=== PATIENT | female | born 2000 | race Caucasian/White ===

== ENCOUNTER 2018-03-04 18:33 | Emergency (ER) | payer MEDICAID ==
[~2018-03-04] VITALS: Ht 162.6 cm; Wt 89.9 kg
[2018-03-04 18:40] VITALS: BP 124/86
[2018-03-04] MEDS ORDERED: METHOCARBAMOL 750 MG TABLET ONE (19:56)
[2018-03-04] MEDS ORDERED: KETOROLAC 30 MG/1 ML ONE (19:57)
[2018-03-04] MEDS ORDERED: METHOCARBAMOL 750 MG TABLET PO ONE (20:00)
[2018-03-04] MEDS ORDERED: KETOROLAC 30 MG/1 ML IM ONE (20:00)
== END 2018-03-04 21:06 | disposition home or self-care (01) ==
LOC: ED 21:00
DX: S16.1XXA Strain of muscle, fascia and tendon at neck level, initial encounter (principal); S29.012A Strain of muscle and tendon of back wall of thorax, initial encounter; V43.52XA Car driver injured in collision with other type car in traffic accident, initial encounter; Y93.89 Activity, other specified; Y92.89 Other specified places as the place of occurrence of the external cause; Y99.8 Other external cause status
CPT/HCPCS: 72072; 72125; 96372; 99284; J1885

== ENCOUNTER 2021-03-10 11:52 | Emergency (ER) | payer SELFPAY ==
[~2021-03-10] VITALS: Ht 162.6 cm; Wt 70.6 kg
[2021-03-10 11:59] VITALS: BP 116/73
--- NOTE | 2021-03-10 13:34 | NUR ---
SALES ENGINE[employer] ENGINEERED [employer]ODUCTS: PT TO ROOM FROM [facility]
== END 2021-03-10 14:22 | disposition home or self-care (01) ==
LOC: ED 14:00
DX: S50.12XA Contusion of left forearm, initial encounter (principal); X58.XXXA Exposure to other specified factors, initial encounter; Y93.89 Activity, other specified; Y92.89 Other specified places as the place of occurrence of the external cause; Y99.8 Other external cause status
CPT/HCPCS: 99283